=== PATIENT | male | born 1990 | race Caucasian/White ===

== ENCOUNTER 2016-12-16 17:33 | Emergency (ER) | payer OTHER ==
[2016-12-16] MEDS ORDERED: TETRACAINE 0.5% OPHTH SOLUTION 4ML BOTTLE. ONE (18:06)
[2016-12-16] MEDS ORDERED: FLUORESCEIN OPHTH TEST STRIP. ONE (18:06)
[2016-12-16] MEDS ORDERED: DIPHTH,PERTUSS(ACELL),TET TOX 0.5 ML DISP.SYRIN. VAX IM ONE (18:30)
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
[2016-12-16] MEDS ORDERED: HYDROmorphone 2 MG/ML VIAL IM ONE ×2 (19:00→19:45)
[2016-12-16 20:11] VITALS: BP 139/71
[2016-12-16] MEDS ORDERED: ONDANSETRON ODT 4 MG TAB.RAPDIS. ONE (20:16)
[2016-12-16] MEDS ORDERED: ONDANSETRON ODT 4 MG TAB.RAPDIS. PO ONE (20:30)
== END 2016-12-16 20:11 | disposition short-term general hospital (02) ==
LOC: ER 17:33
DX: S05.31XA Ocular laceration without prolapse or loss of intraocular tissue, right eye, initial encounter (principal); H21.01 Hyphema, right eye; W39.XXXA Discharge of firework, initial encounter; Y93.89 Activity, other specified; Y92.69 Other specified industrial and construction area as the place of occurrence of the external cause; Y99.8 Other external cause status
CPT/HCPCS: 90471; 90715; 96372; 99285; J1170; Q0162